=== PATIENT | female | born 1960 | race Caucasian/White ===

== ENCOUNTER 2016-07-20 21:53 | Observation (INO) | payer SELFPAY ==
[~2016-07-20] VITALS: Ht 154.9 cm; Wt 80.0 kg
[2016-07-20] MEDS ORDERED: SODIUM CHLOR 0.9% 1000 ML INJ 1,000 ML IV SCH (22:20)
[2016-07-20] MEDS ORDERED: SODIUM CHLORIDE 0.9% FLUSH 10 ML FLUSH IVF PRN (22:30)
[2016-07-20] MEDS ORDERED: ONDANSETRON HCL 4 MG/2 ML VIAL IVP ONE (22:30)
[2016-07-20] MEDS ORDERED: PANTOPRAZOLE SODIUM 40 MG VIAL IVP ONE (22:30)
--- NOTE | 2016-07-20 22:38 | PD ---
HPI Chief Complaint: vomiting and diarrhea Time Seen by Provider: 22:19 Travel History International Travel<30 days: No Contact w/Intl Traveler<30days: No History of Present Illness HPI So 55 year-old woman who presents to the emergency department claiming abdominal pain with nausea vomiting and some loose stools. She has a history of daily alcohol use, about 1 box of wine or so daily. Started feeling sick a day or 2 ago. She's had dizziness headache nausea vomiting and loose stools. She normal has trouble with diarrhea next week took a laxative tea last night. She's had dark she describes as coffee ground like emesis as well as dark loose stools. She denies any history of cirrhosis. Was told she had a "swollen liver " in the past. No history of GI bleed. No other complaints. Denies any history of alcohol withdrawal symptoms in the past. History Past Medical History Narrative Medical Daily alcohol use Social History Tobacco Use: No Allergies-Medications (Allergen,Severity, Reaction): Coded Allergies: No Known Allergies (Unverified , 07/20/16) Reported Meds & Prescriptions Reported Meds & Active Scripts Active Reported Lisinopril 10 Mg Tab 10 Mg PO DAILY Review of Systems Except as stated in HPI: all other systems reviewed are Neg Physical Exam Narrative GENERAL: Well-appearing 55 year-old woman, no acute distress. SKIN: Focused skin assessment warm/dry. NECK: Trachea midline. No JVD. CARDIOVASCULAR: Regular rate and rhythm. No murmur appreciated. RESPIRATORY: No accessory muscle use. Clear to auscultation. Breath sounds equal bilaterally. GASTROINTESTINAL: Abdomen soft, non-tender, nondistended. Hepatic and splenic margins not palpable. MUSCULOSKELETAL: No obvious deformities. No edema. NEUROLOGICAL: Awake and alert. No obvious cranial nerve deficits. Motor grossly within normal limits. Normal speech. PSYCHIATRIC: Appropriate mood and affect; insight and judgment normal. RECTAL: Dark black stool in the rectal vault. Guaiac positive. Data Data Last Documented VS Vital Signs Date Time Temp Pulse Resp B/P Pulse Ox O2 Delivery O2 Flow Rate FiO2 07/20/16 23:07 20 100 Room Air 07/20/16 22:55 98.1 116 138/86 Orders Complete Blood Count With Diff (07/20/16 22:20) Comprehensive Metabolic Panel (07/20/16 22:20) Lipase (07/20/16 22:20) Prothrombin Time / Inr (Pt) (07/20/16 22:20) Act Partial Throm Time (Ptt) (07/20/16 22:20) Type And Screen (07/20/16 22:20) Ecg Monitoring (07/20/16 22:20) Iv Access Insert/Monitor (07/20/16 22:20) Oximetry (07/20/16 22:20) Ondansetron Inj (Zofran Inj) (07/20/16 22:30) Pantoprazole Inj (Protonix Inj) (07/20/16 22:30) Sodium Chlor 0.9% 1000 Ml Inj (Ns 1000 M (07/20/16 22:20) Sodium Chloride 0.9% Flush (Ns Flush) (07/20/16 22:30) Labs Laboratory Tests Test 07/20/16 22:40 White Blood Count 6.9 TH/MM3 Red Blood Count 3.11 MIL/MM3 Hemoglobin 11.0 GM/DL Hematocrit 32.5 % Mean Corpuscular Volume 104.3 FL Mean Corpuscular Hemoglobin 35.3 PG Mean Corpuscular Hemoglobin 33.9 % Concent Red Cell Distribution Width 12.7 % Platelet Count 72 TH/MM3 Mean Platelet Volume 10.2 FL Neutrophils (%) (Auto) 69.0 % Lymphocytes (%) (Auto) 17.4 % Monocytes (%) (Auto) 10.5 % Eosinophils (%) (Auto) 2.2 % Basophils (%) (Auto) 0.9 % Neutrophils # (Auto) 4.8 TH/MM3 Lymphocytes # (Auto) 1.2 TH/MM3 Monocytes # (Auto) 0.7 TH/MM3 Eosinophils # (Auto) 0.1 TH/MM3 Basophils # (Auto) 0.1 TH/MM3 CBC Comment AUTO DIFF Differential Comment AUTO DIFF CONFIRMED Platelet Estimate NORMAL Platelet Morphology Comment NORMAL Prothrombin Time 13.7 SEC Prothromb Time International 1.2 RATIO Ratio Activated Partial 31.6 SEC Thromboplast Time Sodium Level 140 MEQ/L Potassium Level 3.9 MEQ/L Chloride Level 106 MEQ/L Carbon Dioxide Level 24.8 MEQ/L Anion Gap 9 MEQ/L Blood Urea Nitrogen 22 MG/DL Creatinine 0.40 MG/DL Estimat Glomerular Filtration 167 ML/MIN Rate Random Glucose 153 MG/DL Calcium Level 8.4 MG/DL Total Bilirubin 1.5 MG/DL Aspartate Amino Transf 41 U/L (AST/SGOT) Alanine Aminotransferase 47 U/L (ALT/SGPT) Alkaline Phosphatase 134 U/L Total Protein 6.5 GM/DL Albumin 3.0 GM/DL Lipase 183 U/L Blood Type AB POSITIVE Blood Bank Comment MDM Medical Decision Making Medical Screen Exam Complete: Yes Emergency Medical Condition: Yes Differential Diagnosis Gastroenteritis, GI bleed, gastritis, liver disease, other Narrative Course Medical decision making 31 year-old woman with nausea vomiting diarrhea with dark emesis and dark stools concerning for GI bleed. History of alcoholism and daily alcohol use. Looks overall well. We'll check labs, guaiac, IV fluids, PPI, reassess. HemaPrompt Point of Care Internal Pos. & Neg. Controls: Passed Fecal Specimen Occult Blood: Positive Donn Saucedo MD Jul 20, 2016 22:37
[2016-07-20] MEDS ORDERED: LISI10TA3 PO (22:53)
[2016-07-20 22:55] VITALS: BP 138/86; PULSE 116; RESP 20; TEMP 98.1; O2SAT 100
[2016-07-20 23:07] VITALS: RESP 20; O2SAT 100
[2016-07-20 23:24] LABS: AUTOMATED NEUTROPHIL # 4.8 TH/MM3 (1.8-7.7); BASOPHIL # 0.1 TH/MM3 (0-0.2); BASOPHIL % 0.9 % (0.0-2.0); EOSINOPHIL # 0.1 TH/MM3 (0-0.4); EOSINOPHIL % 2.2 % (0.0-4.0); HEMATOCRIT 32.5 % (35.0-46.0); LYMPH % 17.4 % (9.0-44.0); LYMPHOCYTE # 1.2 TH/MM3 (1.0-4.8); MEAN CELL VOLUME 104.3 FL (80.0-100.0); MEAN CORPUSCULAR HEMOGLOBIN 35.3 PG (27.0-34.0); MEAN CORPUSCULAR HGB CONC 33.9 % (32.0-36.0); MONO % 10.5 % (0.0-8.0); PLATELET COUNT 72 TH/MM3 (150-450); RED BLOOD COUNT 3.11 MIL/MM3 (4.00-5.30); RED CELL DISTRIBUTION WIDTH 12.7 % (11.6-17.2); WHITE BLOOD COUNT 6.9 TH/MM3 (4.0-11.0)
[2016-07-20 23:37] LABS: APTT (PATIENT) 31.6 SEC (24.3-30.1); INTERNATIONAL NORMALIZED RATIO 1.2 RATIO; PROTHROMBIN TIME - PATIENT 13.7 SEC (9.8-11.6)
[2016-07-20 23:40] LABS: ANION GAP 9 MEQ/L (5-15); AST (GOT) 41 U/L (15-37); BICARBONATE 24.8 MEQ/L (21.0-32.0); BLOOD UREA NITROGEN 22 MG/DL (7-18); CHLORIDE 106 MEQ/L (98-107); GLOMERULAR FILTRATION RATE 167 ML/MIN (>89); POTASSIUM 3.9 MEQ/L (3.5-5.1); SODIUM (NA) 140 MEQ/L (136-145)
[2016-07-20 23:41] LABS: ALT (GPT) 47 U/L (10-53)
[2016-07-20 23:43] LABS: ALKALINE PHOSPHATASE 134 U/L (45-117); TOTAL BILIRUBIN ADULT 1.5 MG/DL (0.2-1.0)
[2016-07-20 23:58] LABS: HEMO FLAGS AUTO DIFF
[2016-07-20 23:59] LABS: PLATELET ESTIMATE SMEAR NORMAL (NORMAL); PLATELET MORPHOLOGY NORMAL (NORMAL); SCAN/DIFF AUTO DIFF CONFIRMED
[2016-07-21] VITALS (9 sets, daily range): BP systolic 101–139; BP diastolic 52–67; PULSE 73–97; RESP 16–20; TEMP 97.3–98.1; O2SAT 96–100
[2016-07-21] MEDS: SODIUM CHLOR 0.9% 1000 ML INJ 1,000 ML IV SCH ×3 (00:23→21:35)
[2016-07-21] MEDS ORDERED: SODIUM CHLORIDE 0.9% FLUSH 10 ML FLUSH IV FLUSH PRN (00:30)
[2016-07-21] MEDS ORDERED: NALOXONE HCL 0.4 MG/ML AMP IV PRN (00:30)
[2016-07-21 04:42] LABS: HEMATOCRIT 27.8 % (35.0-46.0)
[2016-07-21 04:45] LABS: REVIEW FLAG FINAL
[2016-07-21 08:53] LABS: AUTOMATED NEUTROPHIL # 3.3 TH/MM3 (1.8-7.7); BASOPHIL # 0.1 TH/MM3 (0-0.2); EOSINOPHIL # 0.2 TH/MM3 (0-0.4); EOSINOPHIL % 3.5 % (0.0-4.0); HEMATOCRIT 28.2 % (35.0-46.0); LYMPHOCYTE # 2.3 TH/MM3 (1.0-4.8); MEAN CELL VOLUME 105.9 FL (80.0-100.0); MEAN CORPUSCULAR HEMOGLOBIN 35.6 PG (27.0-34.0); MEAN CORPUSCULAR HGB CONC 33.6 % (32.0-36.0); MONO % 9.8 % (0.0-8.0); NEUT % 50.7 % (16.0-70.0); PLATELET COUNT 65 TH/MM3 (150-450); RED BLOOD COUNT 2.67 MIL/MM3 (4.00-5.30); RED CELL DISTRIBUTION WIDTH 12.8 % (11.6-17.2); WHITE BLOOD COUNT 6.5 TH/MM3 (4.0-11.0)
[2016-07-21 08:57] LABS: HEMO FLAGS AUTO DIFF
[2016-07-21] MEDS: SODIUM CHLORIDE 0.9% FLUSH 10 ML FLUSH IV FLUSH SCH ×2 (09:09→20:02)
[2016-07-21] MEDS: PANTOPRAZOLE INJ 80 MG in SODIUM CHLORIDE 0.9% INJ 100 ML IV SCH ×2 (09:09→20:01)
[2016-07-21 09:18] LABS: PLATELET ESTIMATE SMEAR LOW (NORMAL); PLATELET MORPHOLOGY NORMAL (NORMAL); SCAN/DIFF AUTO DIFF CONFIRMED
--- NOTE | 2016-07-21 10:15 | PD.CONS ---
HPI History of Present Illness This is a 55 year old female who presented to the emergency room for evaluation of nausea, vomiting, and black tarry stools. She reports that she's been having nausea and vomiting for the past 2 days and that she has had some coffee- ground emesis as well as red blood mixed within this. Her symptoms are aggravated by po intake. There are no alleviating factors. She also has occasional left lower quadrant pain that she describes as a quick throbbing for a few seconds and reports that it goes away on its own. She denies any heartburn, weight loss, or hematochezia. She does report that she's been having black tarry stools intermittently for several months. She also reports a history of constipation and reports that she was taking a natural herbal tea for this. She was taking this daily, but did seem to help with her constipation but she noticed she was becoming more bloated after starting this and therefore backed off of it and only takes it as needed. She denies any history of peptic ulcer disease or prior gastrointestinal bleeding. She does use NSAIDS, taking 3-4 Advil about twice a week. She denies any hx of known liver cirrhosis, although she was told 2 [place] ago [place] of state that she had a "swollen liver." She has continued to drink alcohol, 1/2 to 1 box of wine per day. She denies any known history of hepatitis. She denies any known history of liver disease in any family members. (Zoe Stanley) PFSH Past Medical History "swollen liver" ETOH abuse Uterine fibroids Past Surgical History Denies (Zoe Stanley) Coded Allergies: No Known Allergies (Unverified , 07/20/16) Medications Allergies Coded Allergies Type Severity Reaction Last Updated Verified No Known Allergies 07/20/16 No Active Scripts Medications Dose Route/Sig Days Date Category Lisinopril 10 Mg Tab 10 Mg PO DAILY 07/20/16 Reported Advil 3-4 twice a week Family History Brothers have DM MGM from ovarian cancer No known history of liver disease Social History Smokes 1/2 PPD for many years Drinks 1/2 to 1 box of wine per day Past marijuana use,none currently (Zoe Stanley) Review of Systems Constitutional: COMPLAINS OF: Fatigue, DENIES: Weight loss Respiratory: DENIES: Cough Cardiovascular: COMPLAINS OF: Palpitations, DENIES: Chest pain Gastrointestinal: COMPLAINS OF: Abdominal pain, Black stools, Constipation, Diarrhea, Nausea, Vomiting, Swelling of Abdomen, Hematemesis, DENIES: Bloody stools, Heartburn Musculoskeletal: COMPLAINS OF: Back pain, DENIES: Joint pain Integumentary: DENIES: Abnormal pigmentation, Rash, Jaundice Neurologic: COMPLAINS OF: Headache Psychiatric: DENIES: Confusion (Zoe Stanley) GI Exam Vitals I&O Vital Signs Date Time Temp Pulse Resp B/P Pulse Ox O2 Delivery O2 Flow Rate FiO2 07/21/16 08:00 97.6 81 20 101/54 97 07/21/16 05:14 77 07/21/16 03:33 97.7 73 20 110/52 96 07/21/16 02:35 98.1 86 16 132/63 100 07/21/16 01:45 85 20 130/59 97 07/21/16 00:24 97 20 139/67 98 Room Air 07/20/16 23:07 20 100 Room Air 07/20/16 22:59 20 07/20/16 22:55 98.1 116 20 138/86 100 Laboratory Test 07/20/16 07/21/16 07/21/16 22:40 03:40 08:22 White Blood Count 6.9 TH/MM3 6.5 TH/MM3 Red Blood Count 3.11 MIL/MM3 2.67 MIL/MM3 Hemoglobin 11.0 GM/DL 9.5 GM/DL 9.5 GM/DL Hematocrit 32.5 % 27.8 % 28.2 % Mean Corpuscular Volume 104.3 FL 105.9 FL Mean Corpuscular Hemoglobin 35.3 PG 35.6 PG Mean Corpuscular Hemoglobin 33.9 % 33.6 % Concent Red Cell Distribution Width 12.7 % 12.8 % Platelet Count 72 TH/MM3 65 TH/MM3 Mean Platelet Volume 10.2 FL 10.3 FL Neutrophils (%) (Auto) 69.0 % 50.7 % Lymphocytes (%) (Auto) 17.4 % 35.0 % Monocytes (%) (Auto) 10.5 % 9.8 % Eosinophils (%) (Auto) 2.2 % 3.5 % Basophils (%) (Auto) 0.9 % 1.0 % Neutrophils # (Auto) 4.8 TH/MM3 3.3 TH/MM3 Lymphocytes # (Auto) 1.2 TH/MM3 2.3 TH/MM3 Monocytes # (Auto) 0.7 TH/MM3 0.6 TH/MM3 Eosinophils # (Auto) 0.1 TH/MM3 0.2 TH/MM3 Basophils # (Auto) 0.1 TH/MM3 0.1 TH/MM3 CBC Comment AUTO DIFF AUTO DIFF Differential Comment AUTO DIFF AUTO DIFF CONFIRMED CONFIRMED Platelet Estimate NORMAL LOW Platelet Morphology Comment NORMAL NORMAL Prothrombin Time 13.7 SEC Prothromb Time International 1.2 RATIO Ratio Activated Partial 31.6 SEC Thromboplast Time Sodium Level 140 MEQ/L Potassium Level 3.9 MEQ/L Chloride Level 106 MEQ/L Carbon Dioxide Level 24.8 MEQ/L Anion Gap 9 MEQ/L Blood Urea Nitrogen 22 MG/DL Creatinine 0.40 MG/DL Estimat Glomerular Filtration 167 ML/MIN Rate Random Glucose 153 MG/DL Calcium Level 8.4 MG/DL Total Bilirubin 1.5 MG/DL Aspartate Amino Transf 41 U/L (AST/SGOT) Alanine Aminotransferase 47 U/L (ALT/SGPT) Alkaline Phosphatase 134 U/L Total Protein 6.5 GM/DL Albumin 3.0 GM/DL Lipase 183 U/L Blood Type AB POSITIVE Antibody Screen NEGATIVE Blood Bank Comment Physical Examination HEENT: Normocephalic; atraumatic; no jaundice. CHEST: CTA CARDIAC: RRR. ABDOMEN: Soft, mildy bloated, nontender; significant hepatosplenomegaly; bowel sounds are present in all four quadrants. EXTREMITIES: No clubbing, cyanosis, or edema. SKIN: Normal; no rash; no jaundice. [employer] STAMPING: No focal deficits; alert and oriented times three. (Zoe Stanley) Assessment and Plan Plan ASSESSMENT: - GIB with hematemesis (coffee ground emesis mixed with red blood) and melena. (+) NSAID use. (+) ETOH drinks 1/2-1 box of wine per day. No prior PUD or GI bleeding. States she has been having intermittent melena x 2 months, but presented with 2 day hx of nausea/vomiting with coffee ground emesis and small amount of red blood. HH 9.5/28.2. No known hx of liver cirrhosis, although has significant hepatomegaly and was told 2 years ago she had "swollen liver." NPO. Protonix Gtt. - N/V. Protonix Gtt. Zofran prn. - Anemia secondary to acute blood loss. 9.5/28.2. - Elevated LFTs with significant hepatomegaly. Pt denies known hx of liver cirrhosis, but was told 2 years ago she had "swollen liver" and has continued to drink 1/2-1 box of wine per day. No family hx of liver disease. Has significant hepatomegaly on exam, with some ascites. Plt 65, mild coagulopathy, T. Bili 1.5, AST 41, ALT 47, Alk Phosph 134. Suspect underlying liver cirrhosis. - LLQ pain, occasional quick throbbing pain in LLQ that quickly resolves on own and only lasts a few secondary. Will get CT to assess this and liver, n/v. - Constipation. Takes herbal tea at home, but states that it was making her bloated so she only takes as needed now. - Thrombocytopenia, Mild coagulopathy. PT 13.7, INR 1.2. Plt 65. PLAN: - Plan for egd/colonoscopy in am - Obtain consents - Clear liquids - NPO after MN - Protonix gtt - CT scan abdomen and pelvis with IV/PO contrast - AFP - CHRISTY, ASMA, AMA - Ceruloplasmin, Alpha 1 Antitrypsin - Ferritin, Iron Saturation - CBC, CMP, PT/INR in am - Supportive care - Further recommendations to follow based on results of above - Notify GI of active bleeding - Pt seen and examined by Dr. Asif and myself and this note is written on his behalf (Zoe Stanley) Physician Comments Seen and examined with MARLENA< egd/colonoscopy tomorrow. Liver saini ordered. Thank you (Korey Asif MD) Zoe Stanley Jul 21, 2016 10:15 Korey Asif MD Jul 21, 2016 13:21
--- NOTE | 2016-07-21 11:27 | HHI.HP ---
[facility] No Primary Care Physician Admission Diagnosis GI bleed Diagnoses: Chief Complaint: nausea/vomiting, GI bleed Travel History International Travel<30 Days: No Contact w/Intl Traveler <30 Da: No Traveled to Known Affected Are: No History of Present Illness 55-year-old female with history of alcohol abuse, "enlarged liver", uterine fibroids, presents with a two-day history of nausea/vomiting and dark tarry stools. Patient reports she drinks alcohol, half to one box of wine per day. She has been a daily drinker for over ten years now, prior heavy vodka use. Two days ago she started to experience nausea and vomiting. She states initially her emesis was normal, however yesterday she noticed coffee-ground emesis as well as streaks of red bloody emesis. She also noticed her stools were dark and tarry appearing. She reports her abdomen feeling "sore" associated with the vomiting, however denies any specific abdominal pain. She has been told in the past that she has an enlarged liver secondary to her alcohol abuse, but states her workup for hepatitis was negative. She denies any prior history of GI bleeding. She denies any prior EGD/colonoscopy. She does use Advil a few times per week. Otherwise the patient has no other medical complaints at this time including no fever/chills, headache, lightheadedness, dizziness, chest pain, palpitations, shortness of breath, or urinary complaints. Review of Systems Except as stated in HPI: all other systems reviewed are Neg Past Family Social History Past Medical History Enlarged liver Uterine fibroids Hypertension Past Surgical History Denies any prior surgeries. Reported Medications Lisinopril 10mg daily Suboxone Allergies: Coded Allergies: No Known Allergies (Unverified , 07/20/16) Active Ordered Medications Current Medications Medications (Trade) Dose Ordered Sig/Dipika Route Start Time Stop Time Status Last Admin (NS 1000 ml Inj) 1,000 ml @ 100 mls/hr Q10H IV 07/21/16 00:23 07/21/16 00:23 (NS Flush) 2 ml UNSCH PRN IV FLUSH 07/21/16 00:30 (NS Flush) 2 ml BID IV FLUSH 07/21/16 09:00 07/21/16 09:09 Naloxone HCl 0.4 mg 0.4 mg UNSCH PRN IV 07/21/16 00:30 (Protonix Inj/NS Inj) 100 ml @ 10 mls/hr Q10H IV 07/21/16 07:00 07/21/16 09:09 (Colyte Liq) 4,000 ml ONCE ONCE PO 07/21/16 16:00 07/21/16 16:01 Family History Brothers have Diabetes Maternal grandmother from ovarian cancer No known family history of liver disease Social History Smokes tobacco 1/2 PPD since she was a teenager Drinks 1/2 to 1 box of wine per day, daily drinker for over 10 years Prior marijuana use, denies any current illicit drug use Physical Exam Vital Signs Vital Signs Date Time Temp Pulse Resp B/P Pulse Ox O2 Delivery O2 Flow Rate FiO2 07/21/16 08:00 97.6 81 20 101/54 97 07/21/16 05:14 77 07/21/16 03:33 97.7 73 20 110/52 96 07/21/16 02:35 98.1 86 16 132/63 100 07/21/16 01:45 85 20 130/59 97 07/21/16 00:24 97 20 139/67 98 Room Air 07/20/16 23:07 20 100 Room Air 07/20/16 22:59 20 07/20/16 22:55 98.1 116 20 138/86 100 Physical Exam GENERAL: Well-nourished, well-developed middle-aged female patient in [facility]. SKIN: Warm and dry. No rash. HEAD: Normocephalic. Atraumatic. EYES: Pupils equal and round. No scleral icterus. No injection or drainage. ENT: No nasal bleeding or discharge. Mucous membranes pink and moist. NECK: Supple. Trachea midline. CARDIOVASCULAR: Regular rate and rhythm. S1, S2 noted. No murmur appreciated. RESPIRATORY: No accessory muscle use. Clear to auscultation. Breath sounds equal bilaterally. GASTROINTESTINAL: Abdomen soft, non-tender, nondistended. Normoactive bowel sounds x4. Palpable hepatomegaly. MUSCULOSKELETAL: No obvious deformities. Extremities without clubbing, cyanosis , or edema. NEUROLOGICAL: Awake and alert. No obvious cranial nerve deficits. Motor grossly within normal limits. Normal speech. PSYCHIATRIC: Appropriate mood and affect; insight and judgment normal. Laboratory Laboratory Tests Test 07/20/16 07/21/16 07/21/16 22:40 03:40 08:22 White Blood Count 6.9 6.5 Red Blood Count 3.11 2.67 Hemoglobin 11.0 9.5 9.5 Hematocrit 32.5 27.8 28.2 Mean Corpuscular Volume 104.3 105.9 Mean Corpuscular Hemoglobin 35.3 35.6 Mean Corpuscular Hemoglobin 33.9 33.6 Concent Red Cell Distribution Width 12.7 12.8 Platelet Count 72 65 Mean Platelet Volume 10.2 10.3 Neutrophils (%) (Auto) 69.0 50.7 Lymphocytes (%) (Auto) 17.4 35.0 Monocytes (%) (Auto) 10.5 9.8 Eosinophils (%) (Auto) 2.2 3.5 Basophils (%) (Auto) 0.9 1.0 Neutrophils # (Auto) 4.8 3.3 Lymphocytes # (Auto) 1.2 2.3 Monocytes # (Auto) 0.7 0.6 Eosinophils # (Auto) 0.1 0.2 Basophils # (Auto) 0.1 0.1 CBC Comment AUTO DIFF AUTO DIFF Differential Comment AUTO DIFF AUTO DIFF CONFIRMED CONFIRMED Platelet Estimate NORMAL LOW Platelet Morphology Comment NORMAL NORMAL Prothrombin Time 13.7 Prothromb Time International 1.2 Ratio Activated Partial 31.6 Thromboplast Time Sodium Level 140 Potassium Level 3.9 Chloride Level 106 Carbon Dioxide Level 24.8 Anion Gap 9 Blood Urea Nitrogen 22 Creatinine 0.40 Estimat Glomerular Filtration 167 Rate Random Glucose 153 Calcium Level 8.4 Total Bilirubin 1.5 Aspartate Amino Transf 41 (AST/SGOT) Alanine Aminotransferase 47 (ALT/SGPT) Alkaline Phosphatase 134 Total Protein 6.5 Albumin 3.0 Lipase 183 Blood Type AB POSITIVE Antibody Screen NEGATIVE Blood Bank Comment Result Diagram: 07/21/1682107/20/16 8511 Assessment and Plan Problem List: (1) GI bleeding ICD Code: K92.2 Status: Acute Assessment and Plan 55-year-old female with history of alcohol abuse, "enlarged liver", uterine fibroids, presents with a two-day history of nausea/vomiting and dark tarry stools. GI bleeding with hematemesis and melena: with alcohol abuse and NSAID use. CT abdomen/pelvis images reviewed, no acute findings. Monitor serial H&H, hemoglobin 11.0--> 9.5. Continue on IV Protonix drip. Clear liquid diet. Consult GI. Plan for EGD/colonoscopy tomorrow. NPO after midnight. Supportive treatment with IVF, antiemetics, pain control as needed. Acute Blood Loss Anemia: Secondary to GI bleeding as above. Continue to monitor H&H. Transfuse if hemoglobin less than 8.0. Hepatomegaly with elevated LFTs: Suspect secondary to alcohol abuse. GI consulted, cirrhosis workup initiated. Monitor LFTs. Alcohol abuse: Patient drinks 1/2 to 1 box of wine per day. Counseled on cessation. CIWA protocol. Thiamine/folate/MV. Thrombocytopenia: Platelets 65K. Secondary to liver disease. Monitor CBC. Avoid antiplatelets. Elevated Random Glucose: blood glucose 153. No hx of diabetes. Check HgbA1c. DVT Prophylaxis: teds/SCDs, avoid chemical prophylaxis with thrombocytopenia and upcoming procedure. Code Status Full Code Discussed Condition With Patient, Dr. Lancaster Attending Statement Stable seen in her bedroom, improving nausea, at this time with liquid diet, will have EGD tomorrow following specialist recommendations, continue IV fluids, PPIs, antiemetics, Electrolyte replacement, discussed with Erma Crawford PA-C Jul 21, 2016 11:27 Sánchez Ca MD Jul 21, 2016 17:36
[2016-07-21 12:02] LABS: HEMATOCRIT 27.7 % (35.0-46.0)
[2016-07-21 12:05] LABS: REVIEW FLAG FINAL
[2016-07-21] MEDS ORDERED: FLUMAZENIL 0.5 MG/5 ML VIAL IV PUSH PRN (12:30)
[2016-07-21] MEDS ORDERED: HALOPERIDOL LACTATE 5 MG/ML AMP IM PRN (12:30)
[2016-07-21] MEDS ORDERED: LORazepam 2 MG/ML VIAL IV PUSH PRN ×4 (12:30)
[2016-07-21] MEDS ORDERED: LORazepam 1 MG TAB PO PRN (12:30)
[2016-07-21] MEDS ORDERED: LORazepam 2 MG TAB PO PRN (12:30)
[2016-07-21] MEDS ORDERED: cloNIDine HCL 0.1 MG TAB PO PRN (12:30)
[2016-07-21] MEDS ORDERED: PEG (High)/E-LYTE SOLN 4000 ML BTL PO ONE (16:00)
[2016-07-21 16:23] LABS: FERRITIN 360 NG/ML (8-252); TRANSFERRIN IRON PROFILE 191 MG/DL (200-360)
[2016-07-21 16:26] LABS: REVIEW FLAG FINAL
[2016-07-21] MEDS: MULTIVITAMINS/MINERALS THERAPEUTIC TAB PO SCH (16:58)
[2016-07-21] MEDS: FOLIC ACID 1 MG TAB PO SCH (16:59)
[2016-07-21] MEDS: THIAMINE HCL 100 MG TAB PO SCH (16:59)
[2016-07-21] MEDS: LACTIC ACID (AMMONIUM LACTATE) 12% LOTION 225 GM BTL TOPICAL SCH (20:01)
[2016-07-21] MEDS ORDERED: SUBO8MIS SL (21:11)
[2016-07-22 03:36] VITALS: BP 111/61; PULSE 73; RESP 20; TEMP 97.9; O2SAT 95
[2016-07-22] MEDS: SODIUM CHLOR 0.9% 1000 ML INJ 1,000 ML IV SCH ×2 (06:23→15:35)
[2016-07-22 07:46] VITALS: BP 124/62; PULSE 69; RESP 16; TEMP 97.8; O2SAT 99
[2016-07-22 07:47] LABS: AUTOMATED NEUTROPHIL # 2.6 TH/MM3 (1.8-7.7); EOSINOPHIL # 0.2 TH/MM3 (0-0.4); HEMATOCRIT 25.9 % (35.0-46.0); LYMPHOCYTE # 1.4 TH/MM3 (1.0-4.8); MEAN CELL VOLUME 103.9 FL (80.0-100.0); MEAN CORPUSCULAR HEMOGLOBIN 36.9 PG (27.0-34.0); MEAN CORPUSCULAR HGB CONC 35.5 % (32.0-36.0); MONO % 10.3 % (0.0-8.0); NEUT % 55.7 % (16.0-70.0); PLATELET COUNT 61 TH/MM3 (150-450); RED BLOOD COUNT 2.49 MIL/MM3 (4.00-5.30); RED CELL DISTRIBUTION WIDTH 12.7 % (11.6-17.2); WHITE BLOOD COUNT 4.7 TH/MM3 (4.0-11.0)
[2016-07-22 07:48] LABS: HEMO FLAGS AUTO DIFF
[2016-07-22 07:51] LABS: INTERNATIONAL NORMALIZED RATIO 1.2 RATIO; PROTHROMBIN TIME - PATIENT 13.7 SEC (9.8-11.6)
[2016-07-22 08:11] LABS: ALT (GPT) 49 U/L (10-53); ANION GAP 8 MEQ/L (5-15); AST (GOT) 78 U/L (15-37); BICARBONATE 26.8 MEQ/L (21.0-32.0); BLOOD UREA NITROGEN 16 MG/DL (7-18); CHLORIDE 108 MEQ/L (98-107); GLOMERULAR FILTRATION RATE 142 ML/MIN (>89); POTASSIUM 3.6 MEQ/L (3.5-5.1); SODIUM (NA) 143 MEQ/L (136-145)
[2016-07-22 08:13] LABS: ALKALINE PHOSPHATASE 124 U/L (45-117); TOTAL BILIRUBIN ADULT 1.2 MG/DL (0.2-1.0)
[2016-07-22 08:29] LABS: SCAN/DIFF AUTO DIFF CONFIRMED
--- NOTE | 2016-07-22 08:31 | HHI.PR ---
Subjective Remarks Follow up for GI bleed, anemia. The patient reports feeling well today. She completed bowel prep overnight with multiple watery stools, denies noticing any black or bloody stools. Denies any further nausea or vomiting. Denies abdominal pain. She wants to eat today and go home if possible. Going for EGD/colonoscopy this morning. Objective Vitals Vital Signs Date Time Temp Pulse Resp B/P Pulse Ox O2 Delivery O2 Flow Rate FiO2 07/22/16 07:46 97.8 69 16 124/62 99 07/22/16 03:36 97.9 73 20 111/61 95 07/21/16 20:05 97.5 75 20 132/60 99 07/21/16 16:05 98.1 85 18 105/57 98 07/21/16 12:01 98.0 75 20 115/66 99 I/O 07/21/16 07/21/16 07/21/16 07/22/16 07/22/16 07/22/16 07:00 15:00 23:00 07:00 15:00 23:00 Intake Total 580 ml Output Total 1200 ml Balance -620 ml Intake Oral 580 ml Output Urine Total 1200 ml Stool Total 0 ml # Voids 4 # Bowel Movements 7 Result Diagram: 07/22/1615 07/22/16714 Objective Remarks GENERAL: Well-nourished, well-developed middle-aged female patient in [facility]. SKIN: Warm and dry. No rash. HEENT: Normocephalic. Atraumatic. Pupils equal and round. Mucous membranes pink and moist. NECK: Supple. Trachea midline. CARDIOVASCULAR: Regular rate and rhythm. S1, S2 noted. No murmur appreciated. RESPIRATORY: No accessory muscle use. Clear to auscultation. Breath sounds equal bilaterally. GASTROINTESTINAL: Abdomen soft, non-tender, nondistended. Normoactive bowel sounds x4. Palpable hepatomegaly. MUSCULOSKELETAL: No obvious deformities. Extremities without clubbing, cyanosis , or edema. NEUROLOGICAL: Awake and alert. No obvious cranial nerve deficits. Motor grossly within normal limits. Normal speech. PSYCHIATRIC: Appropriate mood and affect; insight and judgment normal. Medications and IVs Current Medications Medications (Trade) Dose Ordered Sig/Dipika Route Start Time Stop Time Status Last Admin (NS 1000 ml Inj) 1,000 ml @ 100 mls/hr Q10H IV 07/21/16 00:23 07/21/16 21:35 (NS Flush) 2 ml UNSCH PRN IV FLUSH 07/21/16 00:30 (NS Flush) 2 ml BID IV FLUSH 07/21/16 09:00 07/21/16 09:09 Naloxone HCl 0.4 mg 0.4 mg UNSCH PRN IV 07/21/16 00:30 (Protonix Inj/NS Inj) 100 ml @ 10 mls/hr Q10H IV 07/21/16 07:00 07/21/16 20:01 (Folate) 1 mg DAILY PO 07/21/16 12:30 07/26/16 12:29 07/21/16 16:59 (Vitamin B1) 100 mg DAILY PO 07/21/16 12:30 07/21/16 16:59 (Theragran M Tab) 1 tab DAILY PO 07/21/16 12:30 07/26/16 12:29 07/21/16 16:58 (Catapres) 0.1 mg Q6H PRN PO 07/21/16 12:30 (Romazicon Inj) 0.2 mg Q1M PRN IV PUSH 07/21/16 12:30 (Ativan) 1 mg Q4H PRN PO 07/21/16 12:30 (Ativan Inj) 1 mg Q4H PRN IV PUSH 07/21/16 12:30 (Ativan) 2 mg Q2H PRN PO 07/21/16 12:30 (Ativan Inj) 2 mg Q2H PRN IV PUSH 07/21/16 12:30 (Ativan Inj) 2 mg Q1H PRN IV PUSH 07/21/16 12:30 (Ativan Inj) 2 mg Q15M PRN IV PUSH 07/21/16 12:30 (Haldol Inj) 2 mg Q15M PRN IM 07/21/16 12:30 (Lac-Hydrin 12% Lotion) 1 applic BID TOPICAL 07/21/16 21:00 07/21/16 20:01 A/P Problem List: (1) GI bleeding ICD Code: K92.2 Status: Acute Assessment and Plan 55-year-old female with history of alcohol abuse, "enlarged liver", uterine fibroids, presents with a two-day history of nausea/vomiting and dark tarry stools. GI bleeding with hematemesis and melena: with alcohol abuse and NSAID use. CT abdomen/pelvis images reviewed, no acute findings. Monitor serial H&H, hemoglobin 11.0--> 9.5. Continue on IV Protonix drip. Consult GI. Plan for EGD /colonoscopy today. NPO for now. Supportive treatment with IVF, antiemetics, pain control as needed. No further episodes of bleeding. Hgb stable around 9.2 today. Acute Blood Loss Anemia: Secondary to GI bleeding as above. Continue to monitor H&H. Transfuse if hemoglobin less than 8.0. Currently stable Hgb 9.2. Hepatomegaly with elevated LFTs: Suspect secondary to alcohol abuse. GI consulted, cirrhosis workup initiated. Monitor LFTs. Alcohol abuse: Patient drinks 1/2 to 1 box of wine per day. Counseled on cessation. [facility] protocol. Thiamine/folate/MV. Thrombocytopenia: Platelets 65K. Secondary to liver disease. Monitor CBC. Avoid antiplatelets. Elevated Random Glucose: blood glucose 153. No hx of diabetes. Check HgbA1c. DVT Prophylaxis: teds/SCDs, avoid chemical prophylaxis with thrombocytopenia and upcoming procedure. Discharge Planning 1700hrs: The patient had her EGD/colonoscopy this morning which showed esophagitis, gastritis, portal hypertensive gastropathy,internal and external hemorrhoids. She has now tolerated a regular meal and wants to go home. Discussed the results with the patient and recommendations for continuing Protonix. Also recommended patient take stool softeners to avoid constipation. Also discussed hepatitis C antibody positive. Instructed patient she needs to f/ up with gastroenterology for further work up and possible treatment for Hepatitis C. Instructed patient she needs to stop drinking and she seems motivated. Discussed with significant other at bedside. Will order mandatory referral for gastroenterology follow up. Instructed to f/up with GI for biopsy results in 7-10days. The patient has also been given packet to apply for patient assistance to f/up at community clinic. Discharge patient to home Condition on discharge: Improved Regular Diet as tolerated Ad Jenna activity Rx written: Protonix 40mg daily, Colace 100mg bid, Ferrous sulfate 325mg bid Follow-up with primary care physician and gastroenterology Attending Statement Seen in her bedroom in the presence of her , no further episodes of bleeding discharge Home now, continue follow by PCP and GI specialist. Erma Bolaños PA-C Jul 22, 2016 08:31 Sánchez Ca MD Jul 22, 2016 17:50
[2016-07-22] MEDS: THIAMINE HCL 100 MG TAB PO SCH (08:38)
[2016-07-22] MEDS: FOLIC ACID 1 MG TAB PO SCH (08:38)
[2016-07-22] MEDS: MULTIVITAMINS/MINERALS THERAPEUTIC TAB PO SCH (08:38)
[2016-07-22] MEDS: SODIUM CHLORIDE 0.9% FLUSH 10 ML FLUSH IV FLUSH SCH (08:39)
[2016-07-22] MEDS: LACTIC ACID (AMMONIUM LACTATE) 12% LOTION 225 GM BTL TOPICAL SCH (08:50)
[2016-07-22 09:46] VITALS: BP 124/62; PULSE 69; RESP 18; TEMP 97.8; O2SAT 99
[2016-07-22] MEDS ORDERED: PROPOFOL 200 MG/20 ML AMP IV ONE (10:21)
--- NOTE | 2016-07-22 10:42 | GIPROC ---
[facility] [address] [facility]. [facility], [address] EGD PROCEDURE REPORT EXAM DATE: 07/22/2016 PATIENT NAME: Marisela Ramires MR #: [id number] BIRTHDATE: 1960 ATTENDING: Korey Asif MD ORDER #: [id number] UNIT ASSEMBLER: Joe Kenney and Terence Diamond STATUS: inpatient INDICATIONS: The patient is a 55 yr old female here for an EGD due to iron deficiency anemia PROCEDURE PERFORMED: EGD w/ biopsy MEDICATIONS: None and Per Anesthesia. TOPICAL ANESTHETIC: CONSENT: The patient understands the risks and benefits of the procedure and understands that these risks include, but are not limited to: sedation, allergic reaction, infection, perforation and/or bleeding. Alternative means of evaluation and treatment include, among others: physical exam, x-rays, and/or surgical intervention. The patient elects to proceed with this endoscopic procedure. medical equipment was checked for proper function. Hand hygiene and appropriate measures for infection prevention was taken. After the risks, benefits and alternatives of the procedure were thoroughly explained, Informed consent was verified, confirmed and timeout was successfully executed by the treatment team. The patient was anesthetized with topical anesthesia and the EC-[id number] (Pedi C) and [id number] endoscope was introduced through the mouth and advanced to the second portion of the duodenum. Retroflexed views revealed no abnormalities The gastroscope was then slowly withdrawn and removed. ESOPHAGUS: There was LA Class A esophagitis noted. STOMACH: Moderate portal hypertensive gastropathy was found in the gastric fundus. There was erythematous moderate gastritis in the gastric antrum. A biopsy was performed using cold forceps. Sample sent for histology. DUODENUM: The duodenal mucosa appeared normal. ADVERSE EVENTS: There were no complications. IMPRESSIONS: 1. There was LA Class A esophagitis noted 2. Portal hypertensive gastropathy was found in the gastric fundus 3. There was erythematous gastritis in the gastric antrum; biopsy was performed 4. Normal duodenal mucosa 5. Retroflexed views revealed no abnormalities RECOMMENDATIONS: 1. Await biopsy results. Biopsy results will not be ready for 7-10 days. If you don't hear from us in two weeks, call our office for biopsy results. 2. Anti-reflux regimen 3. Continue PPI 4. Avoid NSAIDS PATIENT CONDITION: stable DISPOSITION: Inpatient REPEAT EXAM: Return 1 year EGD pending biopsy results Korey Asif MD eSigned: Korey Asif MD 07/22/2016 10:41 AM cc: PATIENT NAME: Marisela Ramires MR#: [id number]
--- NOTE | 2016-07-22 10:44 | GIPROC ---
[facility] [address] [facility]. [facility], [address] COLONOSCOPY PROCEDURE REPORT EXAM DATE: 07/22/2016 PATIENT NAME: Marisela Ramires MR #: [id number] BIRTHDATE: 1960 ENDOSCOPIST: Korey Asif MD ORDER #: [id number] BEHAVIOR[employer] SCIENC[employer] INSTRUCTOR: Terence Diamond and Joe Kenney STATUS: inpatient INDICATIONS: The patient is a 55 yr old female here for a colonoscopy due to iron deficiency anemia PROCEDURE PERFORMED: Colonoscopy, diagnostic MEDICATIONS: None and Per Anesthesia. PREP QUALITY: The Liberty Bowel Prep Score was Right colon 2, Mid colon 2, and Left colon 2. Total = 6. PREP TYPE:GoLytely ESTIMATED BLOOD LOSS: None CONSENT: The patient understands the risks and benefits of the procedure and understands that these risks include, but are not limited to: sedation, allergic reaction, infection, perforation and/or bleeding. Alternative means of evaluation and treatment include, among others: physical exam, x-rays, and/or surgical intervention. The patient elects to proceed with this endoscopic procedure. medical equipment was checked for proper function. Hand hygiene and appropriate measures for infection prevention was taken. After the risks, benefits and alternatives of the procedure were thoroughly explained, Informed consent was verified, confirmed and timeout was successfully executed by the treatment team. A digital exam revealed external hemorrhoids The Pentax EC-[id number] and [id number] endoscope was introduced through the anus and advanced to the cecum, which was identified by both the appendix and ileocecal valve. The instrument was then slowly withdrawn as the colon was fully examined. COLON FINDINGS: The colonic mucosa appeared normal. Retroflexed views revealed internal hemorrhoids and Retroflexed views revealed medium internal hemorrhoids The scope was then completely withdrawn from the patient and the procedure terminated. PROCEDURE WITHDRAWAL TIME:6minutes ADVERSE EVENTS: There were no complications. IMPRESSIONS: 1. The colonic mucosa appeared normal 2. Retroflexed views revealed internal hemorrhoids 3. Retroflexed views revealed medium internal hemorrhoids 4. Revealed external hemorrhoids RECOMMENDATIONS: 1. Continue surveillance 2. Yearly hemoccult RECALL: Return 5 years Colonoscopy Korey Asif MD eSigned: Korey Asif MD 07/22/2016 10:44 AM cc:
[2016-07-22] MEDS: PANTOPRAZOLE INJ 80 MG in SODIUM CHLORIDE 0.9% INJ 100 ML IV SCH ×2 (11:57→13:00)
[2016-07-22 12:18] VITALS: BP 132/65; PULSE 77; RESP 16; TEMP 98; O2SAT 100
[2016-07-22 15:56] VITALS: BP 119/59; PULSE 75; RESP 18; TEMP 98.9; O2SAT 98
[2016-07-22 16:05] LABS: HEMOGLOBIN LA1C 1.8 %
[2016-07-22] MEDS ORDERED: PROT40TA PO (16:38)
--- NOTE | 2016-07-22 16:38 | HHI.DCPOC ---
Discharge Care Plan Diagnosis: (1) GI bleeding (2) Esophagitis Goals to Promote Your Health * To prevent worsening of your condition and complications * To maintain your health at the optimal level Directions to Meet Your Goals Take your medications as prescribed Follow your dietary instruction Follow activity as directed Keep your appointments as scheduled Take your immunizations and boosters as scheduled If your symptoms worsen call your PCP, if no PCP go to Urgent Care Center or Emergency Room Smoking is Dangerous to Your Health. Avoid second hand smoke Call the 24-hour hour crisis hotline for domestic abuse at Erma Bolaños PA-C Jul 22, 2016 16:38
[2016-07-22] MEDS ORDERED: DOCU100T9 PO (16:57)
[2016-07-22] MEDS ORDERED: FERR325C PO ×4 (17:06→17:15)
[2016-07-22 18:06] LABS: HEMOGLOBIN A1a 1.4 %; HEMOGLOBIN A1b 0.7 %; HEMOGLOBIN F 0.8 %; HEMOGLOBIN P3 3.3 %
[2016-07-22 18:07] LABS: HEMOGLOBIN Ao 85.4 %
[2016-07-23 13:30] LABS: ANA SCREEN NEG (NEG)
[2016-07-27 07:53] LABS: MITOCHONDRIAL ABS LESS THAN 20.0 U (())
== END 2016-07-22 19:45 | disposition home or self-care (01) ==
LOC: NEPC 21:53 → NEDA 07-21 00:24 → NEPHCDU 07-21 02:25
PROVIDERS: ADMIT Hospitalist; ATTEND Hospitalist
DX: K92.2 Gastrointestinal hemorrhage, unspecified (principal); K29.70 Gastritis, unspecified, without bleeding; K20.9 Esophagitis, unspecified; K76.6 Portal hypertension; K31.89 Other diseases of stomach and duodenum; K64.8 Other hemorrhoids; K64.4 Residual hemorrhoidal skin tags; I10 Essential (primary) hypertension; D62 Acute posthemorrhagic anemia; F17.200 Nicotine dependence, unspecified, uncomplicated; R16.0 Hepatomegaly, not elsewhere classified; F10.10 Alcohol abuse, uncomplicated; D69.6 Thrombocytopenia, unspecified; R79.89 Other specified abnormal findings of blood chemistry; D68.9 Coagulation defect, unspecified; R18.8 Other ascites; K59.00 Constipation, unspecified
CPT/HCPCS: 43239; 45378; 80053; 80074; 82103; 82105; 82390; 82728; 83036; 83520; 83540; 83550; 83690; 85014; 85018; 85025; 85610; 85730; 86038; 86256; 86850; 86900; 86901; 88305; 88312; 96361; 96365; 96366; 96374; 96375; 99285; C9113; G0378; J2405; J7030

== ENCOUNTER 2016-10-07 15:19 | Emergency (ER) | payer SELFPAY ==
[~2016-10-07] VITALS: Ht 154.9 cm; Wt 70.0 kg
[~2016-10-07 15:19] MED LIST: DOCU100T9 PO; FERR325C PO; LISI10TA3 PO; PROT40TA PO; SUBO8MIS SL
[2016-10-07 15:21] VITALS: BP 134/64; PULSE 106; RESP 20; TEMP 98.8; O2SAT 99
--- NOTE | 2016-10-07 15:33 | PD ---
Physical Exam Time Seen by Provider: 15:31 Narrative 56yo F c/o R upper tooth pain x 3 days. Has had teeth problems for many months. Denies fever, vomiting. No facial swelling noted in triage. Patient seen in triage. VS reviewed. Awaiting bed placement. Data Data Last Documented VS Vital Signs Date Time Temp Pulse Resp B/P (MAP) Pulse Ox O2 Delivery O2 Flow Rate FiO2 10/07/16 15:21 98.8 106 20 134/64 (87) 99 Room Air MDM Supervised Visit with FARZANEH: Krystle Jarvis Oct 07, 2016 15:33
--- NOTE | 2016-10-07 16:07 | PD ---
HPI Chief Complaint: Oral / Dental Pain or Problem Time Seen by Provider: 15:57 Travel History International Travel<30 days: No Contact w/Intl Traveler<30days: No Traveled to known affect area: No History of Present Illness HPI 56-year-old female with periodontal disease comes in with increasing pain and sensitivity to the upper jaw for the past week. Patient is been taking [id number] medications without improvement. Patient has needed antibiotics in the past. She has sensitivity to hot and cold. She denies fever , chills, or difficulty swallowing. Pain is currently 10. She has no known drug allergies. PFSH Past Medical History Asthma: No Blood Disorders: No Anxiety: Yes Depression: Yes Heart Rhythm Problems: No Cancer: No Cardiovascular Problems: No Chemotherapy: No Chest Pain: No COPD: No Diabetes: No Diminished Hearing: No Endocrine: No Genitourinary: No Hypertension: Yes Musculoskeletal: No Neurologic: No Psychiatric: Yes Reproductive: No Respiratory: No Radiation Therapy: No Sleep Apnea: No Thyroid Disease: No Menopausal: Yes : 3 Para: 3 Social History Alcohol Use: Yes (1/2 box wine per day) Tobacco Use: No Substance Use: Yes (METHADONE) Allergies-Medications (Allergen,Severity, Reaction): Coded Allergies: No Known Allergies (Unverified , 10/07/16) Reported Meds & Prescriptions Reported Meds & Active Scripts Active Iron (Ferrous Sulfate) 325 Mg Capsule.er 325 Mg PO BIDPC Docusate Sodium 100 Mg Tab 100 Mg PO BID Protonix (Pantoprazole Sodium) 40 Mg Tab 40 Mg PO DAILY Reported Suboxone Sublingual Film (Buprenorphine-Naloxone Sublingual Film) 8-2 Mg Film 1 Film SL DAILY Unique ID number required: Lisinopril 10 Mg Tab 10 Mg PO DAILY Review of Systems General / Constitutional: No: Fever Eyes: No: Visual changes HENT: Positive: Dental Difficulties, No: Headaches, Sore Throat, Rhinitis, Rhinorrhea, Congestion, Nosebleed, Neck Stiffness, Neck Pain, Gingival Bleeding , Ear Discharge Cardiovascular: No: Chest Pain or Discomfort Respiratory: No: Shortness of Breath Gastrointestinal: No: Abdominal Pain Genitourinary: No: Dysuria Musculoskeletal: No: Pain Skin: No Rash Neurologic: No: Weakness Psychiatric: No: Depression Endocrine: No: Polydipsia Hematologic/Lymphatic: No: Easy Bruising Physical Exam Narrative GENERAL: Patient appears in acute distress. SKIN: Warm and dry. Normal color. Normal turgor HEAD: Atraumatic. Normocephalic. EYES: Pupils equal and round. No scleral icterus. No injection or drainage. ENT: No nasal bleeding or discharge. Mucous membranes pink and moist. Patient has advanced periodontal disease throughout with mild swelling to the upper jaw consistent with periodontitis. No significant abscess is appreciated. NECK: Trachea midline. Supple and nontender. CARDIOVASCULAR: Regular rate and rhythm. RESPIRATORY: No accessory muscle use. Clear to auscultation. Breath sounds equal bilaterally. MUSCULOSKELETAL: Extremities without clubbing, cyanosis, or edema. No obvious deformities. NEUROLOGICAL: Awake and alert. No obvious cranial nerve deficits. Motor grossly within normal limits. Five out of 5 muscle strength in the arms and legs. Normal speech. PSYCHIATRIC: Appropriate mood and affect; insight and judgment normal. Data Data Last Documented VS Vital Signs Date Time Temp Pulse Resp B/P (MAP) Pulse Ox O2 Delivery O2 Flow Rate FiO2 10/07/16 15:21 98.8 106 20 134/64 (87) 99 Room Air MDM Medical Decision Making Medical Screen Exam Complete: Yes Emergency Medical Condition: Yes Differential Diagnosis Dental caries. Dental pain. Dental abscess. Periodontal disease. Narrative Course Patient is medically stable at time of exam. Patient is treated with Pen-Vee K 500 mg 4 times a day 10 days. Patient is given Magic mouthwash to use as directed. Patient should continue with ibuprofen or Aleve as needed. Patient follow-up with dental resources as discussed. Diagnosis Primary Impression: Dental abscess Referrals: Dentist Patient Instructions: Dental Abscess (ED), General Instructions Additional Instructions: Patient is treated with Pen-Vee K 500 mg 4 times a day 10 days. Patient is given Magic mouthwash to use as directed. Patient should continue with ibuprofen or Aleve as needed. Patient follow-up with dental resources as discussed. Disposition: DISCHARGE HOME Condition: Stable Bennett Zacarias Oct 07, 2016 16:07
[2016-10-07] MEDS ORDERED: PENI500T PO (16:08)
[2016-10-07] MEDS ORDERED: MAGICADU2 SWISH-SPIT (16:08)
== END 2016-10-07 16:24 | disposition home or self-care (01) ==
LOC: NEPK 15:19
DX: K04.7 Periapical abscess without sinus (principal); K02.9 Dental caries, unspecified; F41.9 Anxiety disorder, unspecified; F32.9 Major depressive disorder, single episode, unspecified; I10 Essential (primary) hypertension; Z79.899 Other long term (current) drug therapy
CPT/HCPCS: 99284

== ENCOUNTER 2016-10-29 18:59 | Emergency (ER) | payer SELFPAY ==
[~2016-10-29] VITALS: Ht 154.9 cm; Wt 70.0 kg
[~2016-10-29 18:59] MED LIST changes: +MAGICADU2 SWISH-SPIT; +PENI500T PO
[2016-10-29 19:00] VITALS: BP 181/84; PULSE 138; RESP 14; TEMP 99; O2SAT 100
[2016-10-29] MEDS ORDERED: SODIUM CHLOR 0.9% 1000 ML INJ 1,000 ML IV SCH (19:32)
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
[2016-10-29] MEDS ORDERED: SODIUM CHLORIDE 0.9% FLUSH 10 ML FLUSH IV FLUSH PRN (19:45)
[2016-10-29] MEDS ORDERED: ONDANSETRON HCL 4 MG/2 ML VIAL IVP ONE (19:45)
[2016-10-29 20:39] LABS: AUTOMATED NEUTROPHIL # 6.1 TH/MM3 (1.8-7.7); BASOPHIL # 0.1 TH/MM3 (0-0.2); EOSINOPHIL # 0.1 TH/MM3 (0-0.4); EOSINOPHIL % 0.9 % (0.0-4.0); HEMATOCRIT 27.4 % (35.0-46.0); HEMO FLAGS DIFF FINAL; LYMPH % 11.4 % (9.0-44.0); LYMPHOCYTE # 0.9 TH/MM3 (1.0-4.8); MEAN CELL VOLUME 81.5 FL (80.0-100.0); MEAN CORPUSCULAR HEMOGLOBIN 25.2 PG (27.0-34.0); MEAN CORPUSCULAR HGB CONC 30.9 % (32.0-36.0); MONO % 8.1 % (0.0-8.0); NEUT % 78.6 % (16.0-70.0); PLATELET COUNT 173 TH/MM3 (150-450); RED BLOOD COUNT 3.36 MIL/MM3 (4.00-5.30); RED CELL DISTRIBUTION WIDTH 21.1 % (11.6-17.2); WHITE BLOOD COUNT 7.7 TH/MM3 (4.0-11.0)
[2016-10-29 21:07] LABS: ANION GAP 7 MEQ/L (5-15); AST (GOT) 31 U/L (15-37); BICARBONATE 25.7 MEQ/L (21.0-32.0); BLOOD UREA NITROGEN 8 MG/DL (7-18); CHLORIDE 107 MEQ/L (98-107); GLOMERULAR FILTRATION RATE 145 ML/MIN (>89); POTASSIUM 3.8 MEQ/L (3.5-5.1); SODIUM (NA) 140 MEQ/L (136-145)
[2016-10-29 21:09] LABS: ALT (GPT) 41 U/L (10-53)
[2016-10-29 21:10] LABS: ALKALINE PHOSPHATASE 152 U/L (45-117); TOTAL BILIRUBIN ADULT 0.6 MG/DL (0.2-1.0)
--- NOTE | 2016-10-29 21:15 | RADRPT ---
EXAM DATE/TIME: 10/29/2016 20:12 [facility] COMPARISON: No previous studies available for comparison. INDICATIONS : Abdominal pain, constipation for one week. ORAL CONTRAST: No oral contrast ingested. RADIATION DOSE: 9.96 CTDIvol (mGy) MEDICAL HISTORY : Cardiovascular disease. Hypertension. SURGICAL HISTORY : None. ENCOUNTER: Initial ACUITY: 1 week PAIN SCALE: 5/10 LOCATION: Abdomen TECHNIQUE: Volumetric scanning of the abdomen and pelvis was performed. Using automated exposure control and ad justment of the mA and/or kV according to patient size, radiation dose was kept as low as reasonably achievable to obtain optimal diagnostic quality images. DICOM format image data is available electro nically for review and comparison. FINDINGS: The liver is enlarged and nodular in contour suggesting probable cirrhosis. There is ascites along t he edge of the liver. The spleen is also enlarged. Perigastric varices are noted. The findings are suggestive of portal hypertension. The gallbladder is distended and its wall is somewhat thickened for the degree of dist ention. If there is clinical concern for acute cholecystitis a hepatobiliary scan may be helpful to rule out cys tic duct obstruction. No biliary ductal dilatation is noted. Some ascites is noted within the pelvis. There is no evidence of bowel obstruction. The urinary bladder is unremarkable. The uterus is also unremarkable. Fecal debris is noted within the rectosigmoid colon consistent with the patient's stated constipation. Evaluation of the solid organs of the abdomen is limited by the lack of intravenous contrast. Degenerative changes and mild scoliosis of the thoracolumbar spine are noted. There is no acute obstructive uropathy. The visualized lung base s are clear. CONCLUSION: 1. Enlarged nodular liver suggesting cirrhosis. 2. Mild splenomegaly and perigastric varices indicating portal hypertension. 3. Minimal ascites within the abdomen and pelvis. 4. Distended gallbladder with mild wall thickening for the degree of distention. If there is clinic al concern for acute cholecystitis a hepatobiliary scan may be helpful to rule out cystic duct obstru ction. 5. Mild degenerative changes and scoliosis of the thoracolumbar spine. Fabricio Kent MD on October 29, 2016 at 20:51 Board Certified Radiologist. This report was verified electronically.
[2016-10-29] MEDS ORDERED: COLY4000S PO (21:26)
[2016-10-29 21:58] VITALS: BP 149/79
[2016-10-29 22:22] LABS: BLOOD, URINE NEG (NEG); COMMENT (UR) CULT NOT INDICATED; CULTURE IF INDICATED CULT NOT INDICATED; GLUCOSE,URINE NEG (NEG); HYALINE CAST, URINE 3 /lpf (RARE); KETONE, URINE NEG (NEG); NITRITE,URINE NEG (NEG); URINE COLOR YELLOW (YELLW/STRAW)
== END 2016-10-29 22:13 | disposition home or self-care (01) ==
LOC: NEPE 18:59
DX: K59.00 Constipation, unspecified (principal); I10 Essential (primary) hypertension; F17.200 Nicotine dependence, unspecified, uncomplicated
CPT/HCPCS: 74176; 80053; 81001; 83605; 85025; 96360; 99284; J7030; P9612

== ENCOUNTER 2017-07-10 15:28 | Emergency (ER) | payer SELFPAY ==
[~2017-07-10] VITALS: Ht 154.9 cm; Wt 75.0 kg
[~2017-07-10 15:28] MED LIST changes: +COLY4000S PO
[2017-07-10 15:47] VITALS: BP 156/72; PULSE 105; RESP 16; TEMP 98.5; O2SAT 100
[2017-07-10] MEDS ORDERED: BACT800T5 PO (18:23)
[2017-07-10] MEDS ORDERED: HYDR28.33 TOPICAL (18:23)
[2017-07-10] MEDS ORDERED: MEDR4PAK PO (18:23)
--- NOTE | 2017-07-10 18:24 | PD ---
HPI Chief Complaint: Skin Problem Time Seen by Provider: 17:30 Travel History International Travel<30 days: No Contact w/Intl Traveler<30days: No Traveled to known affect area: No History of Present Illness HPI 56-year-old female presents to the emergency department with complaint of a possible eczema flare up to bilateral lower extremities. She says she has had a history of eczema to bilateral lower legs for 3 years and lately it has been worse. Says she cannot get rid of it. Denies fever, vomiting. Reports itchiness. Has tried multiple [id number]-xgilgiz topical medications without relief of symptoms. Says she used to get prescribed topical steroid cream from a feltmaker in [place], but she moved down here and has been unable to be seen by PCP because she does not have insurance. Symptoms are mild to moderate in severity. No known aggravating or relieving factors. Constantly itchy. She has no primary care provider. Denies allergies. Denies significant past medical history. PFSH Past Medical History Asthma: No Blood Disorders: No Anxiety: Yes Depression: Yes Heart Rhythm Problems: No Cancer: No Cardiovascular Problems: Yes (HTN) Chemotherapy: No Chest Pain: No COPD: No Diabetes: No Diminished Hearing: No Endocrine: No Genitourinary: No Hypertension: Yes Musculoskeletal: No Neurologic: No Psychiatric: Yes Reproductive: No Respiratory: No Radiation Therapy: No Sleep Apnea: No Thyroid Disease: No ?: Not Menopausal: Yes : 3 Para: 3 Past Surgical History Surgical History: No Previous Surgery Other Surgery: No Social History Alcohol Use: Yes (1/2 box wine per day/STATES QUIT 5 MONTHS AGO) Tobacco Use: Yes (1/2 PPD) Substance Use: Yes (METHADONE) Allergies-Medications (Allergen,Severity, Reaction): Coded Allergies: No Known Allergies (Unverified Adverse Reaction, Unknown, 07/10/17) Reported Meds & Prescriptions Reported Meds & Active Scripts Active Eczema Anti-Itch (Hydrocortisone) 1 % Cream..g. 1 Applic TOPICAL Q6HR PRN Bactrim DS (Sulfamethoxazole-Trimethoprim) 800-160 Mg Tab 1 Tab PO BID 10 Days Medrol Dosepak (Methylprednisolone) 4 Mg Dspk 4 Mg PO DIRECTED Per Pharmacist direction Golytely 236 gm (Polyethylene Glycol/Electrolytes) 4,000 Ml Soln 4,000 Ml PO ONCE Magic Mouthwash Adult Liq (Multi-Ingredient Mouthwash/Gargle) 120 Ml Susp 10 Ml SWISH-SPIT Q2HR Each 5mL contains: Nystatin 200,000units, Diphenhydramine 4.25mg, Viscous Lidocaine 10mg, Zhang syrup 0.8 mL Penicillin V Potassium 500 Mg Tab 500 Mg PO Q6H 10 Days Iron (Ferrous Sulfate) 325 Mg Capsule.er 325 Mg PO BIDPC Docusate Sodium 100 Mg Tab 100 Mg PO BID Protonix (Pantoprazole Sodium) 40 Mg Tab 40 Mg PO DAILY Reported Suboxone Sublingual Film (Buprenorphine-Naloxone Sublingual Film) 8-2 Mg Film 1 Film SL DAILY Unique ID number required: Lisinopril 10 Mg Tab 10 Mg PO DAILY Review of Systems Except as stated in HPI: all other systems reviewed are Neg Physical Exam Narrative GENERAL: Well-nourished, well-developed female patient, in no acute distress; afebrile, nontoxic-appearing SKIN: Warm and dry. Bilateral lower legs are with patches of dry erythema and excoriation pearson; there does appear to be some possible cellulitis to the top of the left foot. Bilateral lower extremities are supple and non-tense with 2+ pedal pulses and sensory intact. HEAD: Atraumatic. Normocephalic. EYES: Pupils equal and round. No scleral icterus. No injection or drainage. ENT: Mucosa pink and moist. Airway patent. NECK: Trachea midline. CARDIOVASCULAR: Regular rate. RESPIRATORY: No accessory muscle use. GASTROINTESTINAL: Flat. MUSCULOSKELETAL: No obvious deformities. No clubbing. No cyanosis. No edema. NEUROLOGICAL: Awake and alert. Oriented 3. No obvious cranial nerve deficits. Motor grossly within normal limits. Normal speech. PSYCHIATRIC: Appropriate mood and affect; insight and judgment normal. Data Data Last Documented VS Vital Signs Date Time Temp Pulse Resp B/P (MAP) Pulse Ox O2 Delivery O2 Flow Rate FiO2 07/10/17 15:47 98.5 105 16 156/72 (100) 100 Orders Orders Ed Discharge Order (07/10/17 18:24) [facility] Medical Decision Making Medical Screen Exam Complete: Yes Emergency Medical Condition: Yes Medical Record Reviewed: Yes Differential Diagnosis Eczema, cellulitis, nonspecific rash, nonspecific skin eruption Narrative Course 56-year-old female with eczema bilateral lower legs that has been consistent for the past 3 years. She has had worsening lately. There does appear to be some cellulitis to the top of the left foot. Hydrocortisone eczema anti-itch cream, Bactrim, Medrol Dosepak prescribed for home. Instructed patient to follow-up with feltmaker. Instructed patient to follow up with primary care provider. Patient verbalizes understanding and agreement with treatment plan. Patient is medically cleared and stable for discharge. Discussed reasons to return to the emergency department. Patient agrees with treatment plan. The patients vital signs are stable and the patient is stable for outpatient follow-up and treatment. Patient discharged home, stable and in no acute distress. Diagnosis Primary Impression: Eczema of lower leg Referrals: [facility] Primary Care Physician Patient Instructions: Eczema (ED), General Instructions Additional Instructions: Take ezni-lgw-mygbvnd antihistamines such as Zyrtec or Alaina to help reduce symptoms Benadryl as directed and as needed to reduce itching Anti-itch creams as needed to reduce itch Moisturize skin at least twice daily Avoid scratching Apply cool wet compresses to affected areas Use bandages were dressings to protect the skin and prevent scratching Take warm oatmeal baths, such as Aveeno, for 10-15 minutes Use a air humidifier Avoid wearing clothing that is rough, tight, scratchy Follow-up with primary care provider Follow-up with feltmaker Return to the emergency department immediately with worsening of symptoms Med/Other Pt SpecificInfo: Prescription(s) given Scripts Hydrocortisone (Eczema Anti-Itch) 1 % Cream..g. 1 APPLIC TOPICAL Q6HR Y for RASH, #1 TUBE Prov: Krystle Gonzalez 07/10/17 Sulfamethoxazole-Trimethoprim (Bactrim DS) 800-160 Mg Tab 1 TAB PO BID for Infection for 10 Days, #20 TAB 0 Refills Prov: Krystle Gonzalez 07/10/17 Methylprednisolone Dosepak (Medrol Dosepak) 4 Mg Dspk 4 MG PO DIRECTED, #1 DSPK 0 Refills Per Pharmacist direction Prov: Krystle Gonzalez 07/10/17 Disposition: 01 DISCHARGE HOME Condition: Stable Krystle Gonzalez Jul 10, 2017 18:24
== END 2017-07-10 18:37 | disposition home or self-care (01) ==
LOC: NEPD 15:28
DX: L30.9 Dermatitis, unspecified (principal); F41.9 Anxiety disorder, unspecified; F32.9 Major depressive disorder, single episode, unspecified; I10 Essential (primary) hypertension; F17.200 Nicotine dependence, unspecified, uncomplicated; Z79.899 Other long term (current) drug therapy
CPT/HCPCS: 99283